=== PATIENT | male | born 1945 | race Caucasian/White ===

== ENCOUNTER 2021-01-04 16:24 | Inpatient (IN) | payer OTHER, MEDICARE ==
[2021-01-04 17:59] LABS: VENOUS BASE EXCESS 0.9 mmol/L (-2-2); VENOUS O2 SATURATION 72.8 % (70-80); VENOUS PCO2 40.7 mmHg (38-52); VENOUS PH 7.415 (7.310-7.410)
[2021-01-04 18:01] LABS: BASO % 0.3 % (0-2.0); EOS % 0.1 % (0-4.5); HEMATOCRIT 39.9 % (35.4-49); HEMOGLOBIN 14.3 GM/dL (11.7-16.9); LYMPH % 5.4 % (8-40); MCH 30.9 pg (25.7-33.7); MCHC 35.7 g/dl (32.0-35.9); MEAN CELL VOLUME 86.5 fl (80-96); MEAN PLT VOLUME 8.9 fl (7.5-11.1); MONO % 11.6 % (3.8-10.2); NEUT % 82.6 % (42.8-82.8); PLATELET COUNT 227 K/MM3 (134-434); RBC 4.62 M/mm3 (4.00-5.60); RDW 13.4 % (11.9-15.9); WHITE BLOOD COUNT 12.5 K/mm3 (4.0-10.0)
[2021-01-04 18:07] LABS: INR 1.09 (0.83-1.09); PROTHROMBIN TIME (PATIENT) 13.1 SEC (9.7-13.0)
[2021-01-04 18:09] LABS: ACTIVATED PTT 27.7 SECONDS (25.2-36.5)
[2021-01-04 18:20] LABS: ALBUMIN 2.9 g/dl (3.4-5.0); BLOOD UREA NITROGEN 33.4 mg/dL (7-18); CALCIUM 8.7 mg/dL (8.5-10.1)
[2021-01-04 18:22] LABS: BILIRUBIN,DIRECT 0.4 mg/dL (0.0-0.2)
[2021-01-04 18:24] LABS: CREATININE 1.5 mg/dL (0.55-1.3)
[2021-01-04 18:25] LABS: TOT PROT 6.6 g/dl (6.4-8.2)
[2021-01-05 03:49] VITALS: BMI 31.8
[2021-01-05 09:11] LABS: BASO % 0.3 % (0-2.0); EOS % 0.3 % (0-4.5); HEMATOCRIT 36.7 % (35.4-49); HEMOGLOBIN 13.3 GM/dL (11.7-16.9); LYMPH % 7.3 % (8-40); MCH 31.3 pg (25.7-33.7); MCHC 36.3 g/dl (32.0-35.9); MEAN CELL VOLUME 86.2 fl (80-96); MEAN PLT VOLUME 8.6 fl (7.5-11.1); MONO % 10.5 % (3.8-10.2); NEUT % 81.6 % (42.8-82.8); PLATELET COUNT 245 K/MM3 (134-434); RBC 4.25 M/mm3 (4.00-5.60); RDW 13.5 % (11.9-15.9); WHITE BLOOD COUNT 10.8 K/mm3 (4.0-10.0)
[2021-01-05] MEDS ORDERED: LORazepam 2 MG/ML SDV VIAL IVPUSH ONE (09:15)
[2021-01-05] MEDS: CLOPIDOGREL BISULFATE 75 MG TABLET (FP) PO SCH (09:32)
[2021-01-05] MEDS: TAMSULOSIN HCL 0.4 MG CAP PO SCH (09:32)
[2021-01-05] MEDS: HYDROCHLOROTHIAZIDE 25 MG TABLET (FP) PO SCH (09:32)
[2021-01-05] MEDS: ASPIRIN COATED 81 MG TABLET.EC PO SCH (09:32)
[2021-01-05] MEDS: amLODIPine BESYLATE 5 MG TABLET (FP) PO SCH (09:32)
[2021-01-05] MEDS: ENOXAPARIN NA (PORCINE) 40 MG/0.4 ML DISP.SYRIN SQ SCH (09:32)
[2021-01-05] MEDS ORDERED: FLU VACCINE (FLULAVAL) PF 60 MCG/0.5 ML SYRINGE 2020-2021 IM ONE (10:00)
[2021-01-05] MEDS ORDERED: PNEUMOC 13-VAL CONJ-DIP CRM/PF 0.5 ML DISP.SYRIN IM ONE (10:00)
[2021-01-05 10:03] LABS: ALBUMIN 2.7 g/dl (3.4-5.0)
[2021-01-05 10:04] LABS: BLOOD UREA NITROGEN 34.7 mg/dL (7-18); CALCIUM 8.1 mg/dL (8.5-10.1)
[2021-01-05 10:07] LABS: CREATININE 1.2 mg/dL (0.55-1.3)
[2021-01-05 10:08] LABS: BILIRUBIN,TOTAL 1.1 mg/dL (0.2-1); TOT PROT 5.8 g/dl (6.4-8.2)
[2021-01-05 10:35] LABS: N-TERMINAL BNP 1668.3 pg/ml (5-125)
[2021-01-05] MEDS ORDERED: VANCOMYCIN 1 GRAM (PRE-DOCKED) 1,000 MG/250 ML BAG IVPB ONE (19:00)
[2021-01-05] MEDS ORDERED: CEFTRIAXONE 2 GM in DEXTROSE 5%-WATER 2 GM/100 ML BAG IVPB ONE (19:01)
[2021-01-05] MEDS ORDERED: DEXTROSE 5%-WATER 100 ML IVPB ONE (19:56)
[2021-01-05] MEDS: ROSUVASTATIN CA 20 MG TABLET (FP) PO SCH (21:33)
[2021-01-05] MEDS ORDERED: SENNOSIDES 8.6MG TABLET (FP) PO PRN (22:57)
[2021-01-06] MEDS: CLOPIDOGREL BISULFATE 75 MG TABLET (FP) PO SCH (09:22)
[2021-01-06] MEDS: amLODIPine BESYLATE 5 MG TABLET (FP) PO SCH (09:22)
[2021-01-06] MEDS: ASPIRIN COATED 81 MG TABLET.EC PO SCH (09:22)
[2021-01-06] MEDS: HYDROCHLOROTHIAZIDE 25 MG TABLET (FP) PO SCH (09:22)
[2021-01-06] MEDS: TAMSULOSIN HCL 0.4 MG CAP PO SCH (09:22)
[2021-01-06] MEDS: ENOXAPARIN NA (PORCINE) 40 MG/0.4 ML DISP.SYRIN SQ SCH (09:23)
[2021-01-06 12:00] LABS: BASO % 0.6 % (0-2.0); EOS % 0.6 % (0-4.5); HEMOGLOBIN 13.4 GM/dL (11.7-16.9); LYMPH % 5.3 % (8-40); MCHC 35.3 g/dl (32.0-35.9); MEAN CELL VOLUME 87.8 fl (80-96); MEAN PLT VOLUME 8.7 fl (7.5-11.1); MONO % 9.3 % (3.8-10.2); NEUT % 84.2 % (42.8-82.8); PLATELET COUNT 287 K/MM3 (134-434); RBC 4.33 M/mm3 (4.00-5.60); RDW 13.5 % (11.9-15.9); WHITE BLOOD COUNT 12.7 K/mm3 (4.0-10.0)
[2021-01-06 12:23] LABS: CALCIUM 8.4 mg/dL (8.5-10.1)
[2021-01-06 12:24] LABS: ALBUMIN 2.8 g/dl (3.4-5.0)
[2021-01-06 12:27] LABS: CREATININE 1.2 mg/dL (0.55-1.3)
[2021-01-06 12:29] LABS: BILIRUBIN,TOTAL 0.7 mg/dL (0.2-1); TOT PROT 6.4 g/dl (6.4-8.2)
[2021-01-06] MEDS: POLYETHYLENE GLYCOL 3350 119 GM BTL PO SCH (18:12)
[2021-01-06] MEDS: ROSUVASTATIN CA 20 MG TABLET (FP) PO SCH (21:10)
[2021-01-07 08:04] LABS: CALCIUM 7.8 mg/dL (8.5-10.1)
[2021-01-07 08:05] LABS: ALBUMIN 2.5 g/dl (3.4-5.0); BLOOD UREA NITROGEN 42.6 mg/dL (7-18)
[2021-01-07 08:08] LABS: CREATININE 1.1 mg/dL (0.55-1.3)
[2021-01-07 08:09] LABS: BILIRUBIN,TOTAL 1.3 mg/dL (0.2-1)
[2021-01-07 08:49] LABS: BASO % 0.6 % (0-2.0); EOS % 0.5 % (0-4.5); HEMATOCRIT 35.8 % (35.4-49); HEMOGLOBIN 12.8 GM/dL (11.7-16.9); LYMPH % 5.5 % (8-40); MCH 31.1 pg (25.7-33.7); MCHC 35.6 g/dl (32.0-35.9); MEAN CELL VOLUME 87.3 fl (80-96); MEAN PLT VOLUME 8.8 fl (7.5-11.1); MONO % 9.9 % (3.8-10.2); NEUT % 83.5 % (42.8-82.8); PLATELET COUNT 272 K/MM3 (134-434); RBC 4.11 M/mm3 (4.00-5.60); RDW 13.7 % (11.9-15.9); WHITE BLOOD COUNT 11.2 K/mm3 (4.0-10.0)
[2021-01-07] MEDS: ASPIRIN COATED 81 MG TABLET.EC PO SCH (10:26)
[2021-01-07] MEDS: TAMSULOSIN HCL 0.4 MG CAP PO SCH (10:26)
[2021-01-07] MEDS: HYDROCHLOROTHIAZIDE 25 MG TABLET (FP) PO SCH (10:26)
[2021-01-07] MEDS: amLODIPine BESYLATE 5 MG TABLET (FP) PO SCH (10:26)
[2021-01-07] MEDS: POLYETHYLENE GLYCOL 3350 119 GM BTL PO SCH (11:18)
[2021-01-07] MEDS: CLOPIDOGREL BISULFATE 75 MG TABLET (FP) PO SCH (11:18)
[2021-01-07] MEDS: APIXABAN 5 MG TABLET PO SCH ×2 (11:18→21:10)
[2021-01-07] MEDS: ROSUVASTATIN CA 20 MG TABLET (FP) PO SCH (21:10)
[2021-01-08 09:01] LABS: BASO % 0.5 % (0-2.0); EOS % 0.3 % (0-4.5); LYMPH % 4.4 % (8-40); MCH 30.9 pg (25.7-33.7); MCHC 35.8 g/dl (32.0-35.9); MEAN CELL VOLUME 86.2 fl (80-96); MEAN PLT VOLUME 8.5 fl (7.5-11.1); MONO % 9.1 % (3.8-10.2); NEUT % 85.7 % (42.8-82.8); PLATELET COUNT 429 K/MM3 (134-434); RBC 4.53 M/mm3 (4.00-5.60); RDW 13.7 % (11.9-15.9); WHITE BLOOD COUNT 13.4 K/mm3 (4.0-10.0)
[2021-01-08 09:12] LABS: CALCIUM 8.9 mg/dL (8.5-10.1)
[2021-01-08 09:13] LABS: ALBUMIN 2.9 g/dl (3.4-5.0); BLOOD UREA NITROGEN 48.6 mg/dL (7-18)
[2021-01-08 09:15] LABS: URIC ACID 7.2 mg/dL (2.6-7.2)
[2021-01-08 09:16] LABS: CREATININE 1.2 mg/dL (0.55-1.3)
[2021-01-08 09:17] LABS: BILIRUBIN,TOTAL 0.7 mg/dL (0.2-1)
[2021-01-08 09:18] LABS: TOT PROT 6.8 g/dl (6.4-8.2)
[2021-01-08] MEDS ORDERED: PT OWN MED DRAWER 7, Y5N ONE (10:30)
[2021-01-08] MEDS: APIXABAN 5 MG TABLET PO SCH ×2 (10:35→21:40)
[2021-01-08] MEDS: CLOPIDOGREL BISULFATE 75 MG TABLET (FP) PO SCH (10:35)
[2021-01-08] MEDS: POLYETHYLENE GLYCOL 3350 119 GM BTL PO SCH (10:36)
[2021-01-08] MEDS: TAMSULOSIN HCL 0.4 MG CAP PO SCH (10:36)
[2021-01-08] MEDS: ASPIRIN COATED 81 MG TABLET.EC PO SCH (10:36)
[2021-01-08] MEDS: amLODIPine BESYLATE 5 MG TABLET (FP) PO SCH (10:36)
[2021-01-08] MEDS: ROSUVASTATIN CA 20 MG TABLET (FP) PO SCH (21:40)
[2021-01-09 09:07] LABS: BASO % 0.3 % (0-2.0); EOS % 0.3 % (0-4.5); HEMATOCRIT 39.5 % (35.4-49); LYMPH % 5.1 % (8-40); MCH 31.1 pg (25.7-33.7); MCHC 35.5 g/dl (32.0-35.9); MEAN CELL VOLUME 87.5 fl (80-96); MEAN PLT VOLUME 8.4 fl (7.5-11.1); MONO % 9.4 % (3.8-10.2); NEUT % 84.9 % (42.8-82.8); PLATELET COUNT 502 K/MM3 (134-434); RBC 4.51 M/mm3 (4.00-5.60); RDW 13.8 % (11.9-15.9); WHITE BLOOD COUNT 15.2 K/mm3 (4.0-10.0)
[2021-01-09 09:21] LABS: CALCIUM 8.7 mg/dL (8.5-10.1)
[2021-01-09 09:22] LABS: BLOOD UREA NITROGEN 54.2 mg/dL (7-18)
[2021-01-09 09:25] LABS: CREATININE 1.4 mg/dL (0.55-1.3)
[2021-01-09] MEDS: amLODIPine BESYLATE 5 MG TABLET (FP) PO SCH (10:04)
[2021-01-09] MEDS: TAMSULOSIN HCL 0.4 MG CAP PO SCH (10:04)
[2021-01-09] MEDS: CLOPIDOGREL BISULFATE 75 MG TABLET (FP) PO SCH (10:04)
[2021-01-09] MEDS: APIXABAN 5 MG TABLET PO SCH ×2 (10:04→22:02)
[2021-01-09] MEDS: POLYETHYLENE GLYCOL 3350 119 GM BTL PO SCH (10:04)
[2021-01-09] MEDS: ASPIRIN COATED 81 MG TABLET.EC PO SCH (10:04)
[2021-01-09] MEDS ORDERED: TAMSULOSIN HCL 0.4 MG CAP PO ONE (12:15)
[2021-01-09] MEDS ORDERED: cefTRIAXone SODIUM 1 GM VIAL ONE (12:23)
[2021-01-09] MEDS ORDERED: DEXTROSE 5%-WATER - 50 ML IVPB ONE (12:23)
[2021-01-09 12:30] LABS: BILIRUBIN,DIRECT 0.3 mg/dL (0.0-0.2)
[2021-01-09] MEDS ORDERED: SODIUM CHLORIDE 1 GM TABLET PO ONE (12:30)
[2021-01-09 12:32] LABS: BILIRUBIN,TOTAL 0.7 mg/dL (0.2-1); TOT PROT 6.8 g/dl (6.4-8.2)
[2021-01-09] MEDS: CEFTRIAXONE 1 GM in DEXTROSE 5%-WATER - 50 ML IVPB SCH (12:32)
[2021-01-09] MEDS: FINASTERIDE 5 MG TABLET (FP) PO SCH (12:32)
[2021-01-09 14:12] LABS: HEP B CORE AB, TOT Negative (Negative)
[2021-01-09] MEDS: ROSUVASTATIN CA 20 MG TABLET (FP) PO SCH (22:02)
[2021-01-10 07:01] LABS: BASO % 0.6 % (0-2.0); EOS % 0.7 % (0-4.5); HEMATOCRIT 36.7 % (35.4-49); HEMOGLOBIN 12.7 GM/dL (11.7-16.9); LYMPH % 7.7 % (8-40); MCH 30.9 pg (25.7-33.7); MCHC 34.5 g/dl (32.0-35.9); MEAN CELL VOLUME 89.6 fl (80-96); MEAN PLT VOLUME 8.2 fl (7.5-11.1); PLATELET COUNT 410 K/MM3 (134-434); RDW 13.6 % (11.9-15.9)
[2021-01-10 07:23] LABS: ALBUMIN 2.4 g/dl (3.4-5.0); CALCIUM 8.2 mg/dL (8.5-10.1)
[2021-01-10 07:24] LABS: BLOOD UREA NITROGEN 37.5 mg/dL (7-18)
[2021-01-10 07:28] LABS: BILIRUBIN,TOTAL 0.6 mg/dL (0.2-1); TOT PROT 5.8 g/dl (6.4-8.2)
[2021-01-10] MEDS ORDERED: TAMSULOSIN HCL 0.4 MG CAP PO SCH (08:30)
[2021-01-10] MEDS ORDERED: cefTRIAXone SODIUM 1 GM VIAL ONE (09:09)
[2021-01-10] MEDS ORDERED: DEXTROSE 5%-WATER - 50 ML IVPB ONE (09:09)
[2021-01-10] MEDS: CLOPIDOGREL BISULFATE 75 MG TABLET (FP) PO SCH (09:14)
[2021-01-10] MEDS: CEFTRIAXONE 1 GM in DEXTROSE 5%-WATER - 50 ML IVPB SCH (09:14)
[2021-01-10] MEDS: amLODIPine BESYLATE 5 MG TABLET (FP) PO SCH (09:14)
[2021-01-10] MEDS: FINASTERIDE 5 MG TABLET (FP) PO SCH (09:14)
[2021-01-10] MEDS: APIXABAN 5 MG TABLET PO SCH (09:14)
[2021-01-10] MEDS: ASPIRIN COATED 81 MG TABLET.EC PO SCH (09:15)
[2021-01-10] MEDS: TAMSULOSIN HCL 0.4 MG CAP PO SCH (09:15)
[2021-01-10] MEDS: POLYETHYLENE GLYCOL 3350 119 GM BTL PO SCH (09:15)
[2021-01-10] MEDS ORDERED: PT OWN MED DRAWER 7, Y5N ONE (13:05)
[2021-01-10 13:11] VITALS: BP 102/62; PULSE 71; TEMP 97.9
== END 2021-01-10 18:00 | disposition home or self-care (01) | DRG 864 ==
LOC: JER 16:24 → JERBED 18:49 → J4S 23:16
PROVIDERS: ADMIT Internal Medicine; ATTEND Family Medicine
PROC: 0T9B70Z Drainage of Bladder with Drainage Device, Via Natural or Artificial Opening (ICD-10-PCS; principal; 2021-01-10)
DX: R50.9 Fever, unspecified (principal); E87.1 Hypo-osmolality and hyponatremia; R77.8 Other specified abnormalities of plasma proteins; I10 Essential (primary) hypertension; Z95.5 Presence of coronary angioplasty implant and graft; R74.8 Abnormal levels of other serum enzymes; I48.91 Unspecified atrial fibrillation; I25.10 Atherosclerotic heart disease of native coronary artery without angina pectoris; D72.829 Elevated white blood cell count, unspecified; K81.1 Chronic cholecystitis; N40.0 Benign prostatic hyperplasia without lower urinary tract symptoms; K59.00 Constipation, unspecified; R33.9 Retention of urine, unspecified; D47.3 Essential (hemorrhagic) thrombocythemia; T50.2X5A Adverse effect of carbonic-anhydrase inhibitors, benzothiadiazides and other diuretics, initial encounter; E66.9 Obesity, unspecified; Z68.31 Body mass index [BMI] 31.0-31.9, adult
CPT/HCPCS: 36415; 70450-TC; 71045-TC-FY; 71250-TC; 74176-TC; 76705-TC; 76775-TC; 80048; 80053; 80076; 82248; 82533; 82550; 82553; 82728; 82803; 83605; 83615; 83880; 83930; 83935; 84300; 84443; 84484; 84550; 85025; 85610; 85730; 86140; 86704; 86706; 86707; 86708; 86709; 86769; 86803; 87040; 87086; 87340; 87804; 90670; 93005; 93010; 97116-GP; 97161-GP; 99285-25; C9803; G0008; G0009; Q2036; U0003

== ENCOUNTER 2024-08-03 04:14 | Day surgery (SDC) | payer OTHER, MEDICARE ==
[2024-08-02 11:52] VITALS: BMI 34.0
[~2024-08-03 04:14] MED LIST: ACETAMINOPHEN 325 MG TABLET (FP) PO PRN
[2024-08-03] MEDS ORDERED: OFLOXACIN 0.3% OPHTHALMIC SOLUTION 5 ML BOTTLE ONE (08:36)
[2024-08-03] MEDS ORDERED: KETOROLAC TROMETHAMINE 0.5% EYE DROP 1 DROP DROPS ONE (08:36)
[2024-08-03] MEDS ORDERED: PHENYLEPHRINE 2.5% OPTHALMIC DROP 2ML BOTTLE ONE (08:36)
[2024-08-03] MEDS ORDERED: TROPICAMIDE 1% OPHTH SOLN 15 ML BOTTLE ONE (08:36)
[2024-08-03] MEDS ORDERED: CYCLOPENTOLATE HCL 1% OPHTH SOLN 2 ML BOTTLE ONE (08:36)
[2024-08-03] MEDS: TROPICAMIDE 1% OPHTH SOLN 15 ML BOTTLE OP SCH (09:20)
[2024-08-03] MEDS: KETOROLAC TROMETHAMINE 0.5% EYE DROP 1 DROP DROPS OP SCH (09:20)
[2024-08-03] MEDS: OFLOXACIN 0.3% OPHTHALMIC SOLUTION 5 ML BOTTLE OP SCH (09:20)
[2024-08-03] MEDS: PHENYLEPHRINE 2.5% OPHTH SOLN 15 ML BOTTLE OP SCH (09:20)
[2024-08-03] MEDS: CYCLOPENTOLATE HCL 1% OPHTH SOLN 2 ML BOTTLE OP SCH (09:20)
[2024-08-03] MEDS: TETRACAINE 0.5% OPHTH SOLN 2 ML BOTTLE OD ONE ×2 (10:09→11:01)
[2024-08-03] MEDS: LIDOCAINE HCL 1% PRESERVATIVE FREE - 30ML VIAL IO ONE ×2 (10:11→11:13)
[2024-08-03] MEDS: POVIDONE-IODINE 5% OPHTHALMIC PREP 30 ML SOLUTION OD ONE ×2 (10:11→11:03)
[2024-08-03] MEDS: BSS (NA/CA/MG/K) BALANCED SALT SOLUTION OPHTH SOLN 15 ML BOTTLE OD ONE ×2 (10:12→11:15)
[2024-08-03] MEDS: CHONDROITIN SU A/HYALUR SOD 1 KIT IO ONE ×2 (10:12→11:20)
[2024-08-03] MEDS: PHENYLEPHRINE/KETOROLAC 4 ML VIAL IO ONE ×2 (10:13→11:37)
[2024-08-03] MEDS: VANCOMYCIN 1 GM in NS (PRE-DOCKED) 1,000 MG/250 ML (RESTRICTED TO ID ONLY) IVPB ONE ×2 (10:14→11:50)
[2024-08-03] MEDS ORDERED: MIDAZOLAM HCL 2 MG/2 ML SINGLE DOSE VIAL ONE (10:34)
[2024-08-03] MEDS ORDERED: PHENYLEPHRINE/KETOROLAC 4 ML VIAL IO ONE (10:43)
[2024-08-03] MEDS: TRYPAN BLUE 0.5 ML DISP.SYRIN IO ONE (11:14)
[2024-08-03] MEDS ORDERED: ONDANSETRON 4 MG/2 ML VIAL ONE (11:35)
[2024-08-03 12:19] VITALS: BP 110/57; PULSE 64; RESP 16; TEMP 97.6
== END 2024-08-03 12:45 | disposition home or self-care (01) ==
LOC: JASU-SURG 04:14
PROVIDERS: ATTEND Ophthalmology
PROC: 08RJ3JZ Replacement of Right Lens with Synthetic Substitute, Percutaneous Approach (ICD-10-PCS; principal; 2024-08-03 11:00)
DX: H25.89 Other age-related cataract (principal); H57.03 Miosis
CPT/HCPCS: 66982; V2632; 82010; J1097